=== PATIENT | female | born 1940 | race Caucasian/White ===

== ENCOUNTER 2021-03-04 08:22 | Day surgery (SDC) | payer MEDICARE, OTHER ==
[~2021-03-04] VITALS: Ht 160 cm; Wt 61.0 kg
--- NOTE | ~2021-03-04 | OR ---
[facility] [address] [place], [place] [address] Draft DATE OF OPERATION: 03/04/2021 SURGEON: Jaleel Taylor MD LOCATION: [facility] Outpatient Surgery. PREOPERATIVE DIAGNOSIS: Right neck mass. POSTOPERATIVE DIAGNOSIS: Right neck mass. PROCEDURE: Orlin-Cut biopsy right neck mass. ANESTHESIA: General LMA; DOUGH SHEETER, Richardson. 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 She also has a more recent history of lung cancer in remission, pelvic lymphoma in remission. She has developed a right neck mass in the parotid bed over the last several months slightly getting larger, tender. CAT scan has shown this in the right parotid bed and partially vascularized tumor. She is taken to the operating room for the above-mentioned procedures. OPERATIVE PROCEDURE AND FINDINGS: After informed consent, the patient was taken to the operating room, placed in the supine position where general LMA anesthesia was induced. The patient and procedure were verified. Right neck exam showed a 2 cm hard subcutaneous mass in the right retromandibular area in the parotid bed. She had a healed parotidectomy incision. The right neck was sterilely prepped and draped. Orlin-Cut biopsies were taken of this mass. Three separate excellent appearing tissue, firm sent to pathology in saline for lymphoma . Bleeding was minimal, stopped afterwards. The skin was cleansed, dressing applied. The patient was awakened, extubated, transported to the recovery room in good condition with no complications. BLOOD LOSS: Minimal. PATIENT NAME: APRIL GLASGOW OPERATIVE REPORT DATE OF : 44 REPORT #: [id number] PHYSICIAN: JALEEL TAYLOR MD PCP: BARBARA BARLOW MD REPORT IS CONFIDENTIAL AND NOT TO BE RELEASED WITHOUT AUTHORIZATION [facility] [address] [facility] [place], [place] [address] Draft SPECIMEN: To pathology. DRAINS: No drains. Jaleel Taylor MD GC/TACOS /[id number] Copies: ~ PATIENT NAME: APRIL GLASGOW OPERATIVE REPORT DATE OF : 44 REPORT #: [id number] PHYSICIAN: JALEEL TAYLOR MD PCP: BARBARA BAROLW MD REPORT IS CONFIDENTIAL AND NOT TO BE RELEASED WITHOUT AUTHORIZATION
[~2021-03-04 08:22] MED LIST: ASPIRIN EC81 MG PO; ATIVAN1 MG PO; BACLOFEN20 MG PO; BAYER CHEWABLE81 MG PO; BENICAR40 MG PO; BIOTIN2500 MCG PO; CLINDAMYCIN HC300 MG PO; COZAAR100 MG PO; DYRENIUM50 MG PO; FAMOTIDINE20 MG PO; FOLIC ACID0.4 MG; FOLIC ACID0.4 MG PO; HYDROCODON-ACE1 EA10 PO; LACTULOSE10 GM/15 M PO; METOPROLOL SUCC25 MG PO; MIRAPEX0.125 MG PO; MIRAPEX0.5 MG PO; MULTI VITAMIN1 EACH PO; OMEPRAZOLE40 MG PO; OXYCODON-ACETA1 EAC2 PO; PENICILLIN V P500 MG PO; PERCOCET 7.5-31 EACH PO; PREDNISONE20 MG PO; PROAIR RESPICL90 MCG IH; ROPINIROLE HCL0.5 MG PO; SENEXON-S TABL1 EACH PO; TRAZODONE HCL100 MG PO; TRIAMTERENE-HC1 EAC3 PO; TYLENOL325 MG PO; VALIUM5 MG PO; VALSARTAN-HCTZ1 EAC4 PO; VITAMIN B COMP1 EACH PO; VITAMIN B-12500 MCG PO; VITAMIN C500 M1 PO; ZOFRAN8 MG PO
[2021-03-04] MEDS ORDERED: MYLANTA MAXIMU355 ML PO (09:11)
--- NOTE | 2021-03-04 11:18 | NUR ---
PATIENT BACK TO ROOM FROM PACU, RAY MORALES PROVIDED BEDSIDE REPORT. DRESSING TO RIGHT LATERAL NECK HAS SMALL AMOUNT OF DRAINAGE. PATIENT AWAKE, CONVERSING WITH DAUGHTER. REPORTS PAIN 0/10 ON PAIN SCALE. DRINKING WATER AND EATING SNACKS. PATIENT SALINE LOCKED. VSS. CALL LIGHT WTIHIN REACH. NO OTHER NEEDS AT THIS TIME.
--- NOTE | 2021-03-04 11:23 | NUR ---
03/04/21 1123 Sheri De Santiago 1042 PT ARRIVED IN PACU SLEEPY WITH NO C/O'S. 1050 C/O PAIN BELOW R EAR FROM SURGERY SITE 10/01. TC TO ANESTHESIA WITH NEW ORDERS RECEIVED. 1059 TORADOL 15MG GIVEN IVP. 1102 OFFIRMEV 1GM GIVEN IV. 1110 TO DS. PAIN DOWN TO 06/01. REPORT GIVEN TO RN. FAMILY AT BEDSIDE.
--- NOTE | 2021-03-04 12:10 | NUR ---
PATIENT UP TO BATHROOM VOIDED. EATING AND DRINKING WELL. PAIN WELL CONTROLLED, NO NEW DRAINAGE TO DRESSING GAUZE TO NECK. PATIENT REQUESTING TO GO HOME. VSS. PROVIDED DISCHARGE INSTRUCTION, DAUGHTER IN THE ROOM. PATIENT AGREED TO RESTING AT HOME AND REPORTED WOULD NOT BE DOING ANY HEAVY LIFTING. PROVIDED PATIENT WITH WHEELCHAIR RIDE OUT TO CAR. APPEARED STEADY ON FEET WITH TRANSFERING TO PRIVATE VEHICLE.
--- NOTE | 2021-03-04 22:01 | EKG ---
[facility] [address] [facility] [place] [address] Signed Sinus rhythm with premature atrial complexes Otherwise normal ECG When compared with ECG of 17-MAY-2018 13:36, premature atrial complexes are now present Confirmed by PATRICIA PADGETT DO ([id number]) on 03/04/2021 10:00:56 PM Electronically Signed By: PATRICIA PADGETT DO 03/04/212200 PATIENT NAME: LINDA GLASGOW Electrocardiogram DATE OF : 44 PHYSICIAN: PATRICIA PADGETT DO REPORT #: [id number] REPORT IS CONFIDENTIAL AND NOT TO BE RELEASED WITHOUT AUTHORIZATION
--- NOTE | 2021-03-10 17:39 | PATH ---
[facility] [address] [place], [place] [address] Signed SPECIMEN(S): A RIGHT NECK SPECIMEN(S): B B T CELL FLOW, RPMI SPECIMEN SOURCE: A. RIGHT NECK B. B T CELL FLOW, RPMI CLINICAL HISTORY: Pre: Biopsy right neck mass. History of lymphoma, history of right parotid tumor. FINAL PATHOLOGIC DIAGNOSIS: A. 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 B. Flow cytometry, right neck mass: - Non-diagnostic. - See report. COMMENT: Preliminary results were called to Dr. Jaleel Moreno's office by Dr. Duyen Michele on 03/05/2021. 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 FISH probes for high grade lymphoma are pending and the results will be reported in an addendum. Depending on the results of the FISH probes, the sub-classification of the lymphoma might change. A diagnostic alert is initiated by Dr. Wade. JLP:NAL:cml:slh:C1NR The majority of the gated cells are classified as debris. The overall total viability is very low at 26%. Too few lymphocytes are detected for evaluation. As a result of these factors, flow evaluation is not possible and correlation with histologic findings is needed. FLOW CYTOMETRY ANALYSIS: FLOW DIFFERENTIAL (% Total CD45 vs. SSC gating): Lymphoid <1%; Debris 99%. Cell Count: <1.0 x 10*2/uL. Total Viability: 26% POPULATION ANALYSIS: LYMPHOID CELLS: Hypocellular specimen. Too few events are detected for accurate analysis of the B/T/NK cells. PLASMA CELLS: A significant plasma cell population is not detected in the PATIENT NAME: LINDA GLASGOW PATHOLOGY DATE OF : 44 REPORT #: [id number] PHYSICIAN: TEJAL PATHOLOGY PCP: BARBARA BARLOW MD REPORT IS CONFIDENTIAL AND NOT TO BE RELEASED WITHOUT AUTHORIZATION [facility] [address] [place], [place] [address] Signed neg-dimCD45/CD38 screening gate. ANTIBODIES USED: KAPPA, LAMBDA, CD20, CD10, CD19, CD23, CD38, FMC7, CD16, CD56, CD8, CD5, CD2, CD4, CD7, CD3, CD45, 7AAD TOTAL ANTIBODIES USED: 18. JNB FLOW CYTOMETRY: Right neck mass, flow cytometry: - Hypocellular specimen, insufficient for evaluation. - See Comment. MICROSCOPIC EXAMINATION: Sections demonstrate sheets of large lymphoid tumor cells with large nuclei with irregular nuclear borders, vesicular chromatin, variably prominent nucleoli, and moderate eosinophilic cytoplasm infiltrating through a background of fibrous tissue. Mitoses are frequent. Necrosis is present. Immunohistochemical stains performed with adequate controls: - CD45: Diffusely and strongly positive in neoplastic infiltrate. - CD3: Stains scattered small T cells. - CD20: Diffusely and strongly positive in neoplastic infiltrate. - CD5: Stains small T cells; negative in neoplastic B cell infiltrate. - PAX5: Positive in neoplastic B cell infiltrate. - CD10: Positive in neoplastic B cell infiltrate. - BCL6: Positive in neoplastic B cell infiltrate. - BCL2: Weakly, variably positive in neoplastic B cell infiltrate. - Cyclin D1: Negative in neoplastic B cell infiltrate. - MUM 1: Positive in some neoplastic B cells. - CD30: Negative in neoplastic B cells. - Myc: Stains a few scattered cells (10%). - CD21: Negative. - Ki-67: Proliferation index of >90%. - Pancytokeratin (AE1/AE3): Negative in neoplastic infiltrate. In situ hybridization performed at [facility] with adequate controls: - ANDREW: Negative. Slides are received from Dr. Michele on 03/10/2021. I agree with her interpretation. LISSETT GROSS DESCRIPTION: PATIENT NAME: LINDA GLASGOW PATHOLOGY DATE OF : 44 REPORT #: [id number] PHYSICIAN: Nouveaux Riche PATHOLOGY PCP: BARBARA BARLOW MD REPORT IS CONFIDENTIAL AND NOT TO BE RELEASED WITHOUT AUTHORIZATION [facility] [address] [place], [place] [address] Signed The specimen, labeled "SJ, A," and designated on the requisition "right neck mass," is received fresh for lymphoma protocol and consists of three phillips-red needle core biopsies, 1.2-1.5 cm in length and 0.2 cm in diameter. A portion of one core is submitted in RPMI to be held for lymphoma triage (per Dr. Michele). Touch preps were made. The remainder of the tissue is inked blue and submitted entirely in cassettes (A1-A2). AC (under the direct supervision of a pathologist) The Gross Description was prepared using a voice recognition system. The report was reviewed for accuracy; however, sound-alike word errors, addition and/or deletions may occur. If there is any question about this report, please contact Client Services. ADDITIONAL NOTES: This test was developed and its performance characteristics determined by [facility]. It has not been cleared or approved by the US Food and Drug Administration. The FDA does not require this test to go through premarket FDA review. This test is used for clinical purposes. It should not be regarded as investigational or for research. This laboratory is certified under the Clinical Laboratory Improvement Amendments (CLIA) as qualified to perform high complexity clinical laboratory testing. Immunohistochemical and/or in situ hybridization studies were performed on this case with the appropriate positive controls that react as expected. This test was developed and its performance characteristics determined by [facility]. It has not been cleared or approved by the U.S. Food and Drug Administration. The FDA has determined that such clearance or approval is not necessary. This test is used for clinical purposes. It should not be regarded as investigational or for research. [facility] is certified under the Clinical Laboratory Improvement Amendments of 1988 (CLIA) as qualified to perform high complexity clinical laboratory testing. This assay has not been validated for specimens that have been decalcified. In this case, certain antibodies were performed by both immunohistochemistry and flow cytometry analysis because flow cytometry analysis did not fully explain all the light microscopic findings. Immunohistochemistry aided in the analysis. Both methods are deemed medically necessary in this case. PERFORMING LABORATORY: PATIENT NAME: LINDA GLASGOW PATHOLOGY DATE OF : 44 REPORT #: [id number] PHYSICIAN: TEJAL CHAMPION PCP: BARBARA BARLOW MD REPORT IS CONFIDENTIAL AND NOT TO BE RELEASED WITHOUT AUTHORIZATION [address] [address] Signed The technical component was performed by [facility], [address] [place] [id number] (Diamond Grinder: Mee Santos MD; CLIA# [id number]). Professional interpretation was performed by [facility], [facility], [address] [place] [id number] (CLIA# [id number]). The technical component of the flow cytometry was performed by [facility], [address] [place] [address] (Diamond Grinder: George Araujo D.O.; CLIA#: [id number]). Professional interpretation of the flow cytometry was performed at [facility], [address] [place] [address] IMAGES: A: [id number] A: [id number] FINAL DIAGNOSIS OF FLOW CYTOMETRY PERFORMED BY: Lex Wade MD, Mar 06 2021 12:41PM Diagnostician: Lex Wade MD Pathologist Electronically Signed 03/10/2021 Copies: ~ PATIENT NAME: LINDA GLASGOW [place] PATHOLOGY DATE OF : 44 REPORT #: [id number] PHYSICIAN: TEJAL PATHOLOGY PCP: BARBARA BARLOW MD REPORT IS CONFIDENTIAL AND NOT TO BE RELEASED WITHOUT AUTHORIZATION
== END 2021-03-04 18:00 | disposition home or self-care (01) ==
LOC: DS 08:22 → OPS 08:22
PROVIDERS: ATTEND Otolaryngology
PROC: 0JB40ZX Excision of Right Neck Subcutaneous Tissue and Fascia, Open Approach, Diagnostic (ICD-10-PCS; principal; 2021-03-04 10:00)
DX: C83.31 Diffuse large B-cell lymphoma, lymph nodes of head, face, and neck (principal); I10 Essential (primary) hypertension; J44.9 Chronic obstructive pulmonary disease, unspecified; E03.9 Hypothyroidism, unspecified; Z85.118 Personal history of other malignant neoplasm of bronchus and lung; Z87.891 Personal history of nicotine dependence
CPT/HCPCS: 00300; 71045; 93005; 93010; J0131; J1100; J1885; J2001; J2405; J2704; J3010

== ENCOUNTER 2021-03-19 10:19 | Day surgery (SDC) | payer MEDICARE, OTHER ==
[~2021-03-19] VITALS: Ht 162.6 cm; Wt 61.6 kg
[~2021-03-19 10:19] MED LIST changes: +MYLANTA MAXIMU355 ML PO
--- NOTE | 2021-03-19 12:11 | NUR ---
1200 HAS BEEN UPDATED WITH WAIT. DAUGHTER AT BEDSIDE. WARM BLANKETS HAVE BEEN GIVEN PER REQUEST. IV PATENT.
--- NOTE | 2021-03-19 12:44 | NUR ---
03/19/21 1244 LILIANA PAINTER 1243-PATIENT ARRIVES TO PACU ON 2L VIA MASK. PATIENT IS AWKAKE AND SITING UP IN BED. RESP EVEN AND UNLABORED. PATIENT TAKING SIPS OF WATER.
--- NOTE | 2021-03-21 14:40 | PATH ---
[facility] [address] [facility] [place], [place] [address] Signed SPECIMEN(S): A BONE MARROW - CORE SPECIMEN(S): B BONE MARROW - ASPIRATION SPECIMEN(S): C FLOW CYTOMETRY, EDTA ASP CLINICAL HISTORY: Bone marrow biopsy. 80-year-old female with confirmed recurrent diffuse large B-cell lymphoma staging. See attached. C83.38 (diffuse large B-cell lymphoma, lymph nodes of multiple sites) DIAGNOSIS SUMMARY: A. Peripheral blood - Unremarkable. - No circulating blasts or atypical lymphocytes are identified. B. Bone marrow biopsy and aspiration: - Hypercellular marrow, 40%, with less than 1% blasts. - Trilineage hematopoiesis with no significant dyspoiesis. - No lymphoproliferative disorder or other malignancy identified. - See Diagnostic Summary. DIAGNOSTIC COMMENT: The specimen is suboptimal for full evaluation. The aspirate smears are hemodilute with no marrow spicules. The aspirate clot section is composed of blood only with no marrow spicules. The core biopsy is excellent, demonstrating trilineage hematopoiesis. No malignancy is identified by morphology (core biopsy), flow cytometry, or immunohistochemistry marking. JLP:caw HISTORICAL SUMMARY: 80-year-old female with a recent diagnosis of DLBCL, GCB type (see case [id number]; 03/04/2021). This bone marrow is for staging. PERIPHERAL BLOOD: HEMOGRAM (03/19/2021): WBC 9.9 K/ul, RBC 4.53 M/ul, HGB 12.3 g/dl, HCT 38.6%, MCV 85.2 fl, MCH 29.3 pg, MCHC 34.4 g/dl, RDW 13.4%, PLT 384 K/ul, MPV 7.3 fl. AUTOMATED DIFFERENTIAL COUNT: Neutrophils 74.8%, lymphocytes 16.3%, monocytes 7.3%, eosinophils 0.6%, basophils 1.0%. The red blood cells are normocytic and normochromic with minimal anisopoikilocytosis. The neutrophils are unremarkable. Lymphocytes are composed of small mature appearing forms. Platelets appear normal in number and morphology with no platelet clumping or RBC PATIENT NAME: LINDA GLASGOW PATHOLOGY DATE OF : 44 REPORT #: [id number] PHYSICIAN: TEJAL PATHOLOGY PCP: BARBARA BARLOW MD REPORT IS CONFIDENTIAL AND NOT TO BE RELEASED WITHOUT AUTHORIZATION [facility] [address] [place], [place] [address] Signed microangiopathic effect identified. No blasts are identified. BONE MARROW: ASPIRATE SMEARS/TOUCH IMPRINT: The aspirate smears are inadequate for evaluation. No marrow spicules are present, and the cellularity appears to predominantly represent peripheral blood. No touch prep smears are present for evaluation. A differential count is not performed. BONE MARROW CORE BIOPSY/ASPIRATE CLOT/CELL BLOCK: The aspirate clot section is composed of blood only and is inadequate for evaluation. The core biopsy is adequate for evaluation. The core biopsy demonstrates unremarkable trabecular bone. The cellularity is mildly increased for age, estimated at 40%. The erythroid precursors are within normal limits with essentially unremarkable maturation. The myeloid precursors are unremarkable with no significant dyspoiesis. Blasts are not increased. Megakaryocytes appear normal in number and in morphology. No granulomas, atypical lymphoid aggregates or foreign malignant cells are detected. SPECIAL STAINS (with adequate controls): - iron (aspirate smear): No marrow spicules are present for evaluation of marrow iron stores. - iron (cell block): No marrow spicules are present for evaluation of marrow iron store IMMUNOHISTOCHEMISTRY STAINS (performed on block A1 with adequate controls). - PAX5: Less than 1%, no atypical aggregates. - CD3: 3%, no atypical aggregates. FLOW CYTOMETRY: Bone marrow, flow cytometry: - No diagnostic abnormal populations are identified by flow cytometry. - See Comment. COMMENT: The majority of the gated lymphocytes are T-cells with an essentially normal marking pattern. A small population (approximately 5% of all gated cells) are NK/T cells which is often a reactive process. The B-cells are unremarkable with no light chain restriction or aberrant marking. Blasts are not increased. No aberrant marking is detected in the myeloid or monocyte gate areas. Plasma cells are not increased. FLOW CYTOMETRY ANALYSIS: FLOW DIFFERENTIAL (% Total CD45 vs. SSC gating): Myeloid 64%; Lymphoid 27%; Monocyte 6%; Dim CD45/Blast: 0.1%; Basophil 1%. PATIENT NAME: LINDA GLASGOW PATHOLOGY DATE OF : 44 REPORT #: [id number] PHYSICIAN: TEJAL PATHOLOGY PCP: BARBARA BARLOW MD REPORT IS CONFIDENTIAL AND NOT TO BE RELEASED WITHOUT AUTHORIZATION [facility] [address] [place], [place] [address] Signed Cell Count: 2.1 x 10*3/uL. POPULATION ANALYSIS: BLASTS: Analysis of the dim CD45 gate demonstrates 0.1% myeloblasts by CD34/CD117. LYMPHOID CELLS: The lymphocyte gate comprises 27% of total events and includes 78% T-cells with a CD4:CD8 ratio of 1.0:1. A T-cell subset is detected (18% of lymphocytes, 5% of total events) co-expressing CD3 and CD56 with dimmer expression of CD5 and CD7. 8% of lymphocytes are polyclonal B-cells with a kappa:lambda ratio of 1.6:1. The remainders are NK-cells. MYELOID CELLS: The myeloid population comprises 64% of the total events. Changes suggestive of hemodilution are observed. 1% of events located within the myeloid gate are eosinophils. MONOCYTES: The monocyte population comprises 6% of the total events. Some increased expression of CD16 is observed. PLASMA CELLS: A significant plasma cell population is not detected in the neg-dimCD45/CD38 screening gate. ANTIBODIES USED: KAPPA, LAMBDA, CD20, CD10, CD19, CD23, CD38, FMC7, CD16, CD56, CD8, CD5, CD2, CD4, CD7, CD3, CD14, CD33, CD13, HLADR, CD34, CD117, CD15, CD45. TOTAL ANTIBODIES USED: 24. JNB FINAL DIAGNOSIS PERFORMED BY: Lex Wade MD, Mar 20 2021 2:45PM GROSS DESCRIPTION: Two specimens are received in two containers, labeled "SJ." A. The specimen, labeled "SJ, core," is received in formalin and consists of one core of brown-phillips bone (2.1 cm in length x 0.2 cm diameter). The specimen is submitted entirely in cassette (A1) following decalcification in Immunocal. B. The specimen, labeled "SJ, clot," is received in formalin and consists of a portion of red-brown clot (1.8 x 1.5 x 0.4 cm in aggregate). The specimen is submitted entirely in cassette (B1). AC (under the direct supervision of a pathologist) The Gross Description was prepared using a voice recognition system. The report was reviewed for accuracy; however, sound-alike word errors, addition and/or deletions may occur. If there is any question about this report, please contact Client Services. ADDITIONAL NOTES: PATIENT NAME: LINDA GLASGOW PATHOLOGY DATE OF : 44 REPORT #: [id number] PHYSICIAN: TEJAL PATHOLOGY PCP: BARBARA BARLOW MD REPORT IS CONFIDENTIAL AND NOT TO BE RELEASED WITHOUT AUTHORIZATION [facility] [address] [place], [place] [address] Signed Immunohistochemical and/or in situ hybridization studies were performed on this case with the appropriate positive controls that react as expected. This test was developed and its performance characteristics determined by [facility]. It has not been cleared or approved by the U.S. Food and Drug Administration. The FDA has determined that such clearance or approval is not necessary. This test is used for clinical purposes. It should not be regarded as investigational or for research. [facility] is certified under the Clinical Laboratory Improvement Amendments of 1988 (CLIA) as qualified to perform high complexity clinical laboratory testing. This assay has not been validated for specimens that have been decalcified. In this case, certain antibodies were performed by both immunohistochemistry and flow cytometry analysis because flow cytometry analysis did not fully explain all the light microscopic findings. Immunohistochemistry aided in the analysis. Both methods are deemed medically necessary in this case. This test was developed and its performance characteristics determined by [facility]. It has not been cleared or approved by the US Food and Drug Administration. The FDA does not require this test to go through premarket FDA review. This test is used for clinical purposes. It should not be regarded as investigational or for research. This laboratory is certified under the Clinical Laboratory Improvement Amendments (CLIA) as qualified to perform high complexity clinical laboratory testing. PERFORMING LABORATORY: The technical component was performed by [facility], [address] [place] [address] (Cigar Head Holer: George Araujo D.O.; CLIA#: [id number]). Professional interpretation was performed by [facility], [address] [place] [address] (CLIA # [id number]). A portion of the technical component was performed by [facility], [address] [place] [address] (Cigar Head Holer: Mee Santos MD; CLIA# [id number]). A portion of the technical component was performed by [facility], [address] [place] [address] (Cigar Head Holer: George Aarujo D.O.; CLIA#: [id number]). Professional interpretation was performed by [facility], [address] [place] [address] (CLIA # [id number]). PATIENT NAME: LINDA GLASGOW PATHOLOGY DATE OF : 44 REPORT #: [id number] PHYSICIAN: TEJAL CHAMPION PCP: BARBARA BARLOW MD REPORT IS CONFIDENTIAL AND NOT TO BE RELEASED WITHOUT AUTHORIZATION [address] [address] Signed IMAGES: A: [id number] A: [id number] Diagnostician: Lex Wade MD Pathologist Electronically Signed 03/21/2021 Copies: ~ PATIENT NAME: LINDA GLASGOW QUINN [place] PATHOLOGY DATE OF : 44 REPORT #: [id number] PHYSICIAN: TEJAL PATHOLOGY PCP: BARBARA BARLOW MD REPORT IS CONFIDENTIAL AND NOT TO BE RELEASED WITHOUT AUTHORIZATION
== END 2021-03-19 12:59 | disposition home or self-care (01) ==
LOC: OPS 10:19 → DS 10:19 → OPS 12:00 → DS 12:00 → OPS 12:59
PROVIDERS: ATTEND Specialist
PROC: 079T3ZX Drainage of Bone Marrow, Percutaneous Approach, Diagnostic (ICD-10-PCS; 2021-03-19)
PROC: 07DR3ZX Extraction of Iliac Bone Marrow, Percutaneous Approach, Diagnostic (ICD-10-PCS; principal; 2021-03-19 12:00)
DX: C83.38 Diffuse large B-cell lymphoma, lymph nodes of multiple sites (principal); G89.3 Neoplasm related pain (acute) (chronic); I10 Essential (primary) hypertension; F41.8 Other specified anxiety disorders; K21.9 Gastro-esophageal reflux disease without esophagitis; Z87.891 Personal history of nicotine dependence; Z88.5 Allergy status to narcotic agent; Z88.0 Allergy status to penicillin; Z88.8 Allergy status to other drugs, medicaments and biological substances
CPT/HCPCS: 80053; 82232; 83615; 85025; 99153; G0500; J2250; J3010; J7121

== ENCOUNTER 2023-03-04 07:15 | Day surgery (SDC) | payer MEDICARE, OTHER ==
[2023-03-02 11:02] VITALS: BP 156/66
[~2023-03-04] VITALS: Ht 162.6 cm; Wt 63.2 kg
[~2023-03-04 07:15] MED LIST changes: +CRESTOR10 MG PO; +NORVASC10 MG PO
[2023-03-04 07:33] VITALS: BP 150/58
[2023-03-04] MEDS ORDERED: LORAZEPAM1 MG PO (07:45)
--- NOTE | 2023-03-04 09:11 | NUR ---
03/04/23 0911 Alfreda Hawthorne PT TO PACU SLEEPING O2 VIA MASK, FOGGING NOTED IN MASK.
[2023-03-04 09:30] VITALS: BP 122/52
--- NOTE | 2023-03-06 10:03 | OR ---
[facility] [address], [place] [address] Signed DATE OF OPERATION: 03/04/2023 SURGEON: Maude De Leon MD PREOPERATIVE DIAGNOSES: 1. Left low axillary mass with positive PET scan. 2. History of lymphoma (recurrent). 3. History of right upper lobe lung cancer 2000. 4. History of breast cancer. POSTOPERATIVE DIAGNOSES: 1. Left low axillary mass with positive PET scan. 2. History of lymphoma (recurrent). 3. History of right upper lobe lung cancer 2000. 4. History of breast cancer. 5. Lesion most consistent with pathologic lymph node low axilla. PROCEDURE: Left axillary lymph node excision. ANESTHESIA: Local with monitored anesthesia care, Fernando Giron CRNA, Marcaine 0.25%. INDICATION: This 82-year-old white woman is a patient of Dr. Barbara Barlow as well as Dr. Barbara Mitchell. She is well known to me from the past having undergone right upper lobectomy of the lung for a non-small cell carcinoma by me in 2000. She has also undergone a transvaginal biopsy of a pelvic lymphoma by me in 2016 showing a diffuse large B-cell lymphoma. She has had relapse of the lymphoma and treatment. More recently, she has had a PET scan in February 03, 2023, confirming a suspicious mass in the left low axilla. She is admitted at this time to undergo excision of the mass for diagnosis. She understands the risk of bleeding, infection, cosmetic deformity, and so on. FINDINGS: The lesion was in fact a lymph node, most likely. It was located in the low axilla. Complete excision was undertaken. There were no complications. DESCRIPTION OF PROCEDURE: The patient was brought to the operating room and given local with monitored anesthesia Electronically Signed By: MAUDE DE LEON MD 03/06/23 1003 PATIENT NAME: LINDA GLASGOW OPERATIVE REPORT DATE OF : 44 REPORT #: [id number] PHYSICIAN: MAUDE DE LEON MD PCP: BARBARA BARLOW MD REPORT IS CONFIDENTIAL AND NOT TO BE RELEASED WITHOUT AUTHORIZATION [facility] [address], [place] [address] Signed care per the patient preference in lieu of general anesthesia. The left lateral chest wall and axilla was prepared with a chlorhexidine solution and draped sterilely. The palpable mass was easily identified and 0.25% Marcaine with epinephrine was injected along the line of skin tension directly over the mass. An incision was made directly over it and dissection carried through the subcutaneous tissue with electrocautery. Using electrocautery, wide excision was undertaken excising the mass entirely which measured about 2 cm. It was highly suggestive of a lymph node. The posterior lateral wall was latissimus dorsi muscle, but it was likely a low axillary lymph node. The wound was closed in layers of interrupted 2-0 Vicryl in a running subcuticular and 3-0 Vicryl for the skin. Steri-Strips were applied as was an Acticoat dressing. BLOOD LOSS: Minimal. COMPLICATIONS: None. MD YOAV Delgado/DIANNEL /[id number] cc: MD Barbara Kilpatrick MD Copies: BARBARA BARLOW DMD, ROBERT C MD ~ Electronically Signed By: MAUDE DE LEON MD 03/06/23 1003 PATIENT NAME: LINDA GLASGOW OPERATIVE REPORT DATE OF : 44 REPORT #: [id number] PHYSICIAN: MAUDE DE LEON MD PCP: BARBARA BARLOW MD REPORT IS CONFIDENTIAL AND NOT TO BE RELEASED WITHOUT AUTHORIZATION
--- NOTE | 2023-03-11 12:13 | PATH ---
[facility] [address] [place], [place] [address] Signed SPECIMEN(S): A LEFT AXILLARY MASS SPECIMEN SOURCE: A. LEFT AXILLARY MASS CLINICAL HISTORY: Left axillary mass, history of B-cell lymphoma. 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 - See comment. COMMENT: Slides are received for hematopathology consultation. Sections reveal follicles with a [id number] architecture and a markedly attenuated mantle zone. Follicles contain centrocytes and centroblasts with less than 10 centroblasts per high-power field. A panel of stains is performed (block A2). PAX5 and CD20: Strong positive in follicles. CD3, CD5, and CD43: Positive in interfollicular small background lymphocytes. CD10 and BCL6: Positive in follicles. Bcl-2: Positive in T cells and in follicles. CD21 and CD23: Positive in follicles with a somewhat distorted dendritic meshwork. Cyclin D: Negative CD138: Less than 1% in interfollicular plasma cells. Ki-67: 30% in follicles SIA [place] and lambda: Negative in lymphocytes. Polyclonal in scattered plasma cells. The morphology and staining pattern is consistent with a low-grade follicular lymphoma. An IgH/Bcl-2 FISH study is pending and the result will be reported in an addendum. A diagnostic alert was initiated by Dr. Wade. [place]ISSETT MICROSCOPIC EXAMINATION: Histologic sections of all submitted blocks are examined by light microscopy. These findings, together with the gross examination, support the pathologic diagnosis. PATIENT NAME: LINDA GLASGOW PATHOLOGY DATE OF : 44 REPORT #: [id number] PHYSICIAN: TEJAL CHAMPION PCP: BARBARA BARLOW MD REPORT IS CONFIDENTIAL AND NOT TO BE RELEASED WITHOUT AUTHORIZATION [facility] [address] [place], [place] [address] Signed GROSS DESCRIPTION: The specimen, labeled and designated "Jorge, left axillary mass," is received in formalin and consists of yellow-phillips, lobulated, fibroadipose tissue that measures 6.5 x 3.5 x 1.2 cm. Sectioning through the specimens reveal pink-phillips nodule that measure 2.3 x 1.7 x 0.8 cm. Sectioning through the nodules reveal pink-phillips, fleshy surface. The nodule is entirely submitted in (A1-A2). JS (under the direct supervision of a pathologist) The Gross Description was prepared using a voice recognition system. The report was reviewed for accuracy; however, sound-alike word errors, addition and/or deletions may occur. If there is any question about this report, please contact Client Services. ADDITIONAL NOTES: Immunohistochemical and/or in situ hybridization studies if performed in this case included appropriate positive controls that reacted as expected. This test was developed and its performance characteristics determined by [facility]. It has not been cleared or approved by the U.S. Food and Drug Administration. The FDA has determined that such clearance or approval is not necessary. This test is used for clinical purposes. It should not be regarded as investigational or for research. [facility] is certified under the Clinical Laboratory Improvement Amendments of 1988 (CLIA) as qualified to perform high complexity clinical laboratory testing. PERFORMING LABORATORY: Technical component was performed by [facility], [address] [place] [id number] (CLIA# [id number]). Professional interpretation was performed by [facility], [address] [place] [address] (CLIA#: [id number]). Diagnostician: Lex Wade MD Pathologist Electronically Signed 03/11/2023 Copies: PATIENT NAME: LINDA GLASGOW QUINN [place] PATHOLOGY DATE OF : 44 REPORT #: [id number] PHYSICIAN: [facility] PCP: BARBARA BARLOW MD REPORT IS CONFIDENTIAL AND NOT TO BE RELEASED WITHOUT AUTHORIZATION [facility] [address] [place], [place] [address] Signed ~ PATIENT NAME: LINDA GLASGOW [place] PATH[facility] DATE OF : 44 REPORT #: [id number] PHYSICIAN: [facility] PCP: BARBARA BARLOW MD REPORT IS CONFIDENTIAL AND NOT TO BE RELEASED WITHOUT AUTHORIZATION
--- NOTE | 2023-03-11 12:16 | EKG ---
[facility] [address] [facility] [place] [address] Signed Sinus bradycardia Left axis deviation Incomplete right bundle branch block Abnormal ECG When compared with ECG of 04-MAR-2021 08:50, premature atrial complexes are no longer present Confirmed by Omi Tejada MD ([id number]) on 03/04/2023 3:59:07 PM Electronically Signed By: OMI TEJADA 03/11/23 1216 PATIENT NAME: LINDA GLASGOW Electrocardiogram DATE OF : 44 PHYSICIAN: OMI TEJADA REPORT #: [id number] REPORT IS CONFIDENTIAL AND NOT TO BE RELEASED WITHOUT AUTHORIZATION
== END 2023-03-04 09:45 | disposition home or self-care (01) ==
LOC: DS 07:15
PROVIDERS: ATTEND Surgery
PROC: 07B60ZX Excision of Left Axillary Lymphatic, Open Approach, Diagnostic (ICD-10-PCS; principal; 2023-03-04 08:15)
DX: C82.84 Other types of follicular lymphoma, lymph nodes of axilla and upper limb (principal); K21.9 Gastro-esophageal reflux disease without esophagitis; I10 Essential (primary) hypertension; Z85.118 Personal history of other malignant neoplasm of bronchus and lung; Z85.3 Personal history of malignant neoplasm of breast; Z88.0 Allergy status to penicillin; Z88.1 Allergy status to other antibiotic agents; Z88.5 Allergy status to narcotic agent; Z88.8 Allergy status to other drugs, medicaments and biological substances; Z79.899 Other long term (current) drug therapy
CPT/HCPCS: 01610; 88305; 88307; 88341; 88342; 88360; 88364; 88365; 93005; 93010; J0690; J1100; J1644; J2001; J2405; J2704; J3010; J3490; J7121

== ENCOUNTER 2023-10-22 08:45 | Day surgery (SDC) | payer MEDICARE, OTHER ==
[2023-10-19 13:28] VITALS: BP 131/52
[~2023-10-22] VITALS: Ht 162.6 cm; Wt 63.6 kg
[~2023-10-22 08:45] MED LIST changes: +CEFAZOLIN SODIUM 2 GM/20 ML SYR IV SCH; +HEParin SOD (PORCINE) 5,000 UNIT/0.5 ML SYR SUB-Q SCH; +IBLOOD GLUCOSE TEST STRIP 1 EA TEST VI PRN; +LACTATED RINGER'S 1,000 ML IV SCH; +LIDOCAINE HCL 1% 5 ML SDV INJ ONE; +LORAZEPAM1 MG PO; +REVLIMID10 MG PO; +TRAMADOL HCL50 MG PO; +TRUXIMA10 MG/1 ML IV
[2023-10-22 08:58] VITALS: BP 155/42
[2023-10-22] MEDS ORDERED: LIDOCAINE HCL 2% 5 ML SDV ONE (13:37)
[2023-10-22] MEDS ORDERED: propofoL 200 MG/20 ML VIAL ONE (13:38)
[2023-10-22] MEDS ORDERED: ondansetron HCL 4 MG/2 ML VIAL IV PRN (14:45)
[2023-10-22] MEDS ORDERED: fentaNYL citrate 50 MCG/ML SDV IV PRN (14:45)
[2023-10-22] MEDS ORDERED: NALOXONE HCL 0.4 MG SYR IV PRN ×2 (14:45→16:15)
[2023-10-22] MEDS ORDERED: IBLOOD GLUCOSE TEST STRIP 1 EA TEST VI PRN (14:45)
[2023-10-22] MEDS ORDERED: iopamidoL 30 ML VIAL ONE (14:50)
[2023-10-22] MEDS ORDERED: SODIUM CHLORIDE 0.9% 100 ML IV ONE (14:51)
[2023-10-22] MEDS ORDERED: HEParin SOD (PORCINE) 5,000 UNIT/ML SDV ONE (14:51)
[2023-10-22] MEDS ORDERED: ondansetron HCL 4 MG/2 ML VIAL ONE (15:08)
[2023-10-22] MEDS ORDERED: LACTATED RINGER'S 1,000 ML IV ONE (15:08)
[2023-10-22] MEDS ORDERED: ePHEDrine sulfate 50 MG/ML AMP ONE (15:18)
--- NOTE | 2023-10-22 16:10 | NUR ---
10/22/23 1610 Anjel,Christina 1553 PT ARRIVED TO PACU AND ROLLED TO LEFT SIDE. PT DENIES PAIN AND NAUSEA. PT REORIENTED TO PACU. 1600 X-RAY AT BEDSIDE AND PT SITTING IN HIGH FOWLERS. PT REPORTS NAUSEA. 1604 LOOKING AT XRAY AND TALKING TO PT. PT SIPPING WATER AND DENIES CONCERNS. VSS.
[2023-10-22] MEDS ORDERED: TYLENOL EXTRA500 MG PO (16:14)
[2023-10-22] MEDS ORDERED: LACTATED RINGER'S 1,000 ML IV SCH (16:15)
[2023-10-22] MEDS ORDERED: HYDROCODONE/ACETA 5/325 TAB PO PRN (16:15)
[2023-10-22] MEDS ORDERED: ACETAMINOPHEN 500 MG TAB PO PRN (16:15)
[2023-10-22] MEDS ORDERED: HYDROCODON-ACE1 EA11 PO (16:15)
[2023-10-22 17:27] VITALS: BP 133/50
--- NOTE | 2023-10-24 13:47 | OR ---
[facility] [address] [place], [place] [address] Signed DATE OF OPERATION: 10/22/2023 SURGEON: Maude De Leon MD PREOPERATIVE DIAGNOSIS: B-cell lymphoma. POSTOPERATIVE DIAGNOSIS: B-cell lymphoma. PROCEDURES: 1. Left subclavian Bard port catheter placement. 2. Surgeon-directed fluoroscopy. ANESTHESIA: Intravenous sedation with local; Mylene Reese CRNA and local 10 mL of 0.25% Marcaine with epinephrine. INDICATION: This 83-year-old white woman is a patient of Dr. Barbara Barlow. She has been diagnosed with B-cell lymphoma and is now undergoing chemotherapy for management of this. She is admitted at this time to undergo Port-A-Cath placement. She understands the risk of bleeding, infection, pneumothorax, and other unforeseen complications. As she has had a Port-A-Cath on the left side in the past, she prefers to have it be placed on that side. FINDINGS: Dark nonpulsatile blood was noted from the left subclavian vein. The catheter was placed without complication. The port sits in the previous Port-A-Cath site and is functioning well. DESCRIPTION OF PROCEDURE: The patient was brought to the operating room, placed in the supine position with arms at the side. Preoperative antibiotic Ancef was given. Sequential compression device stockings were used and heparin subcutaneously administered. The neck and the upper torso were prepared with chlorhexidine solution and draped sterilely. Local anesthetic of 0.25% Marcaine with epinephrine was injected locally. Access to the left subclavian vein was without difficulty showing dark nonpulsatile blood. A flexible J-wire was passed down the needle and fluoroscopy was used to confirm the wire in the right heart system. Electronically Signed By: MAUDE DE LEON MD 10/24/23 1347 PATIENT NAME: LINDA GLASGOW OPERATIVE REPORT DATE OF : 44 REPORT #: [id number] PHYSICIAN: MAUDE DE LEON MD PCP: BARBARA BARLOW MD REPORT IS CONFIDENTIAL AND NOT TO BE RELEASED WITHOUT AUTHORIZATION [facility] [address] [place], [place] [address] Signed The previous scar transversely oriented over the superior aspect of the pectoralis was infiltrated with local anesthetic and transverse incision made in the previous scar. Dissection was carried through the subcutaneous tissue encountering some fibrotic tissue from the past over the left pectoralis. A pocket was created inferiorly to this site. A port device was inspected and previously irrigated with heparinized saline, partially secured to the pectoralis. Attention was turned towards the catheter itself. An incision with an 11 blade was made at the exit site of the wire and dilator and subsequently dilator and peel-away introducer passed over the wire. The dilator and the wire were removed showing vigorous retrograde nonpulsatile dark blood flow. The previously inspected Groshong type catheter for the port device was passed down the peel-away introducer. Peel-away introducer removed without problem. Irrigation and aspiration with heparinized saline showed good dark blood flow. The patient was then placed from the Trendelenburg position to the neutral supine position and with a small amount of radiopaque solution, the catheter was manipulated into appropriate position upon withdrawing of the catheter during fluoroscopy. The catheter was situated at the atriocaval junction. Using the tunneling device, the catheter was delivered to the port site, trimmed to the appropriate length and secured to the port device with the enclosed collar device per training and development professional's instructions. The port was secured to the pectoralis fascia with three-point fixation using 2-0 Vicryl suture. The port was accessed with an angled Schaffer needle showing easy withdrawal of blood and easy infusion of heparinized saline. The pocket was then secured with interrupted 2-0 Vicryl and the skin closed with running subcuticular 3-0 Vicryl. Repeat x-ray was undertaken with radiopaque contrast showing good contour of the catheter without sign of impediment of flow or kink or other abnormality. The port was once again flushed with heparinized saline. Steri-Strips were applied to the incision including the neck incision, which has also been closed with 3-0 Vicryl. Steri-Strips were applied and an Acticoat dressing was applied as well as a small OpSite. She tolerated the procedure well, was taken to recovery room in good condition having suffered no complications. Sponge, needle, and instrument counts were reported as correct x3. MD YOAV Delgado/TACOS Electronically Signed By: MAUDE DE LEON MD 10/24/23 1347 PATIENT NAME: LINDA GLASGOW OPERATIVE REPORT DATE OF : 44 REPORT #: [id number] PHYSICIAN: MAUDE DE LEON MD PCP: BARBARA BARLOW MD REPORT IS CONFIDENTIAL AND NOT TO BE RELEASED WITHOUT AUTHORIZATION [address] [address] Signed /[id number] cc: MD Barbara Fisher MD Copies: BARBARA DODD MD, ROBERT D DMD ~ Electronically Signed By: MAUDE DE LEON MD 10/24/23 1347 PATIENT NAME: LINDA GLASGOW OPERATIVE REPORT DATE OF : 44 REPORT #: [id number] PHYSICIAN: MAUDE DE LEON MD PCP: BARBARA BARLOW MD REPORT IS CONFIDENTIAL AND NOT TO BE RELEASED WITHOUT AUTHORIZATION
== END 2023-10-22 16:37 | disposition home or self-care (01) ==
LOC: DS 08:45
PROVIDERS: ATTEND Surgery
PROC: B517ZZA Fluoroscopy of Left Subclavian Vein, Guidance (ICD-10-PCS; 2023-10-22)
PROC: 05H633Z Insertion of Infusion Device into Left Subclavian Vein, Percutaneous Approach (ICD-10-PCS; principal; 2023-10-22 12:50)
DX: C83.30 Diffuse large B-cell lymphoma, unspecified site (principal); I10 Essential (primary) hypertension; K21.9 Gastro-esophageal reflux disease without esophagitis; Z85.118 Personal history of other malignant neoplasm of bronchus and lung; Z85.3 Personal history of malignant neoplasm of breast; Z79.899 Other long term (current) drug therapy; Z87.891 Personal history of nicotine dependence; Z88.0 Allergy status to penicillin; Z88.1 Allergy status to other antibiotic agents; Z88.5 Allergy status to narcotic agent; Z88.8 Allergy status to other drugs, medicaments and biological substances
CPT/HCPCS: 00532; 71045; 76000; C1788; J0690; J1644; J2001; J2405; J2704; J7121

== ENCOUNTER 2024-12-01 07:25 | Day surgery (SDC) | payer MEDICARE, OTHER ==
[~2024-12-01] VITALS: Ht 162.6 cm; Wt 61.0 kg
[~2024-12-01 07:25] MED LIST changes: +BIOTIN5 MG PO; +CEFAZOLIN SODIUM 2 GM in SODIUM CHLORIDE 0.9% 100 ML IV SCH; -CEFAZOLIN SODIUM 2 GM/20 ML SYR IV SCH; -HEParin SOD (PORCINE) 5,000 UNIT/0.5 ML SYR SUB-Q SCH; +HYDROCODON-ACE1 EA11 PO; +SPIRIVA18 MCG INH; +TYLENOL EXTRA500 MG PO
[2024-12-01 07:51] VITALS: BP 155/52
[2024-12-01] MEDS ORDERED: LIDOCAINE HCL 0.5% 50 ML SDV ONE (08:21)
[2024-12-01] MEDS ORDERED: HYDROCODONE/ACETA 5/325 TAB PO PRN (08:30)
[2024-12-01] MEDS ORDERED: BUPIVACAINE HCL 0.25% 50 ML MDV ONE (08:38)
[2024-12-01] MEDS ORDERED: DEXAMETHASONE SOD PHOS 4 MG/ML VIAL ONE (08:57)
[2024-12-01] MEDS ORDERED: GLYCOPYRROLATE 1 MG/5 ML MDV ONE (09:23)
[2024-12-01] MEDS ORDERED: HYDROCODON-ACE1 EA10 PO (09:28)
[2024-12-01] MEDS ORDERED: HEParin SOD (PORCINE) 500 UNIT/5 ML ML ONE (10:08)
[2024-12-01] MEDS ORDERED: HEParin SOD (PORCINE) 500 UNIT/5 ML ML IV ONE (10:15)
--- NOTE | 2024-12-01 11:08 | OR ---
[facility] [address] [place] [place] [address] Signed DATE OF OPERATION: 12/01/2024 SURGEON: Shannon Hawthorne MD PREOPERATIVE DIAGNOSIS: Carpal tunnel syndrome, right. POSTOPERATIVE DIAGNOSIS: Carpal tunnel syndrome, right. PROCEDURE PERFORMED: Carpal tunnel release, right. QUARTZ ORIENTATOR: None. ANESTHESIA: Alex block. TOURNIQUET TIME: 17 minutes. BRIEF HISTORY: April is an 84-year-old female with progressive worsening of pain and numbness in her hand. She had undergone nerve conduction studies, which were consistent with significant carpal tunnel. Risks, benefits, and alternatives of surgery were discussed with her and she elected to proceed. DESCRIPTION OF PROCEDURE: Once consent was obtained, she was taken the OR and left on the surgery bed. Hand table was brought in. The arm was prepped and draped in a standard sterile fashion. A transverse 1.5 cm incision was made in the distal wrist crease, carried through skin and subcutaneous tissue. Palmaris longus was identified, retracted, and protected. It was fairly well scarred down. The transverse carpal ligament was identified under loupe magnification. It was dissected free of overlying soft tissue proximally and distally. It was then transected with tenotomy scissors and released proximally a centimeter and distally to the distal extent. This was palpated using the [place] and under direct loupe magnification, it was found to be released completely. The wound was then copiously irrigated with normal saline, closed with 3-0 nylon and injected with 7 mL of 0.25% plain Electronically Signed By: SHANNON HAWTHORNE MD 12/01/24 1108 PATIENT NAME: APRIL GLASGOW OPERATIVE REPORT DATE OF : 44 REPORT #: [id number] PHYSICIAN: SHANNON HAWTHORNE MD PCP: BARBARA BARLOW MD REPORT IS CONFIDENTIAL AND NOT TO BE RELEASED WITHOUT AUTHORIZATION [facility] [address] [place], [place] [address] Signed Marcaine. The wound was then dressed with bacitracin, Adaptic, 4 x 8s, and gauze. She tolerated the procedure well. All sponge, needle, and instrument counts were correct. Shannon Hawthorne MD BA/MODL /[id number] Copies: ~ Electronically Signed By: SHANNON HAWTHORNE MD 12/01/24 1108 PATIENT NAME: APRIL GLASGOW OPERATIVE REPORT DATE OF : 44 REPORT #: [id number] PHYSICIAN: SHANNON HAWTHORNE MD PCP: BARBARA BARLOW MD REPORT IS CONFIDENTIAL AND NOT TO BE RELEASED WITHOUT AUTHORIZATION
[2024-12-01 14:17] VITALS: BP 115/49
--- NOTE | 2024-12-01 14:24 | NUR ---
12/01/24 1424 [place] 0951- PT PRESENTS TO PACU, SEMI PAINTING POSTION, REACTIVE TO STIMULUS. BREATHING EVEN AND NON LABORED ON ROOM AIR. LR INFUSING TO LEFT CHEST PORT. ABD SOFT, NON DISTENDED. DRESSING TO RIGHT WRIST, CDI. ICE PLACED TO SITE. HAND COLD, PALE, CAP REFILL SLOW, WILL CONTINUE TO MONITOR WITH TIME AFTER TOURNIQUET. ALL MONITORS IN PLACE. 0935- PT WAKES EASY TO VERBAL STIMULI. DENIES PAIN OR NAUSEA. PT ABLE TO MOVE RIGHT ARM BUT UNABLE TO FEEL FINGERS AT THIS TIME. 0945- PT AWAKE CONVERSING WITH STAFF. NO SIGNS OF DISTRESS. 1004- DAUGHTER BROUGHT BACK TO GO OVER D/C INSTRUCTIONS AND HELP PT GET DRESSED. VERBALIZED UNDERSTANDING. UP TO SIDE OF BED, TOLERATING WELL. 1010- HEPARIN FLUSH IN PORT, DEACCESSED, BAND AID APPLIED. TRANSFERRED TO WHEELCHAIR WITH STEADY GAIT. PT TAKEN OUT TO FAMILY CAR BY VOLUNTEER WITH ALL BELONGINGS, NO SIGNS OF DISTRESS.
== END 2024-12-01 10:15 | disposition home or self-care (01) ==
LOC: DS 07:25
PROVIDERS: ATTEND Specialist
PROC: 01N50ZZ Release Median Nerve, Open Approach (ICD-10-PCS; principal; 2024-12-01 08:55)
DX: G56.01 Carpal tunnel syndrome, right upper limb (principal); I10 Essential (primary) hypertension; E11.9 Type 2 diabetes mellitus without complications; Z88.0 Allergy status to penicillin; Z88.8 Allergy status to other drugs, medicaments and biological substances
CPT/HCPCS: 01810; J0688; J1100; J2405; J2704; J7121